=== PATIENT | male | born 2000 | race Hispanic/Latino ===

== ENCOUNTER 2020-11-28 07:19 | Day surgery (SDC) | payer OTHER ==
[2020-11-26 14:43] VITALS: BMI 22.4
[2020-11-28] MEDS ORDERED: Bupivacaine 0.25% HCL 30 ML VIAL ONE (07:47)
[2020-11-28] MEDS ORDERED: Lidocaine 1% (PF) 30 ML VIAL ONE (07:47)
[2020-11-28 08:19] LABS: Hemoglobin 16.3 g/dL (14.0-18.0); Mean Corpuscular HGB CONC 32.9 g/dL (32.0-36.0); Mean Corpuscular Hemoglobin 31.9 pg (27.0-31.0); Mean Corpuscular Volume 96.9 fL (78.0-98.0); Mean Platelet Volume 7.7 fL (7.4-10.4); Platelet Count 216 thou/uL (130-400); RBC Distribution Width 11.2 % (11.5-14.5); White Blood Cell (WBC) Count 7.1 thou/uL (4.8-10.8)
[2020-11-28] MEDS ORDERED: Fentanyl 100 MCG/2 ML VIAL ONE (08:30)
[2020-11-28] MEDS ORDERED: Famotidine/PF 20 mg/2ml Vial ONE (08:30)
[2020-11-28] MEDS ORDERED: Meperidine HCl/PF 25 MG/ML VIAL ONE (08:30)
[2020-11-28 08:37] LABS: Anion Gap 12 mmol/L (10-20); BUN (Urea Nitrogen) 19 mg/dL (8.9-20.6); Calc. Creatinine Clearance 104 mL/min (70-130); Calcium 9.6 mg/dL (7.8-10.44); Carbon Dioxide 29 mmol/L (22-29); Chloride 102 mmol/L (98-107); Glucose 100 mg/dL (70-105); Potassium 4.1 mmol/L (3.5-5.1); Sodium 139 mmol/L (136-145)
[2020-11-28 08:46] LABS: Band 2 % (5-11); Eosinophils 1 % (0-10); Lymphocytes 48 % (21-51); MDiff Complete? YES; Monocytes 2 % (0-10); Neutrophil 36 % (42-75); RBC Morphology Normal; Reactive Lymphocytes 11 % (0-10)
[2020-11-28 08:51] LABS: SARS-CoV-2 NAA Rapid Test Not Detected (NotDetected)
[2020-11-28] MEDS ORDERED: Ondansetron PF 4 MG/2 ML Vial ONE (09:31)
[2020-11-28] MEDS ORDERED: Dexamethasone 20 MG/5 ML VIAL ONE (09:31)
[2020-11-28] MEDS ORDERED: PROPOFOL 200 MG/20 ML VIAL ONE (09:31)
[2020-11-28] MEDS ORDERED: Ketorolac Tromethamine 30 MG/ML VIAL ONE (09:31)
[2020-11-28] MEDS ORDERED: Lidocaine 1% PF 5 ML VIAL ONE (09:31)
[2020-11-28] MEDS ORDERED: Metoclopramide HCl 10 MG/2 ML VIAL ONE (09:31)
--- NOTE | 2020-11-28 10:17 | OP ---
DATE OF PROCEDURE: 11/28/2020 PREOPERATIVE DIAGNOSIS: Left varicocele. POSTOPERATIVE DIAGNOSIS: Left varicocele. PROCEDURE PERFORMED: Left inguinal varicocelectomy. ANESTHESIA: General. COMPLICATIONS: None. BLOOD LOSS: Minimal. SPECIMENS: Left varicocele. DESCRIPTION OF PROCEDURE: After informed consent, the patient was taken to the operating room, transferred to the table under his own power. Anesthesia was established. A time-out was performed showing correct patient, site, and procedure. He was prepped and draped in the supine position. This case was performed using loupe magnification. An incision was performed in the left groin overlying the spermatic cord. This was carried down through Kenyatta's with electrocautery, and the spermatic cord delivered into the operative field. The enlarged/varicose veins were carefully dissected away from the remainder of the spermatic cord. Care was taken to assure that the spermatic artery or testicular artery and vas deferens were excluded. The varicose veins were then dissected proximally and distally and then tied off with 2-0 silk ties and then thick tie performed with 3-0 Vicryl. The intervening varicose tissue was removed and passed off as specimen. There was no active bleeding, and no remaining enlarged veins to be removed. The spermatic cord was delivered back into the groin. Kenyatta's was closed with Vicryl. Skin was closed with 4-0 Monocryl and dressed with Dermabond. He tolerated the procedure well. All counts were correct at the end. Job ID: [id number]
== END 2020-11-28 11:15 | disposition home or self-care (01) ==
LOC: SDC 07:19
PROVIDERS: ATTEND Urology
PROC: 0VBG0ZZ Excision of Left Spermatic Cord, Open Approach (ICD-10-PCS; principal; 2020-11-28)
DX: I86.1 Scrotal varices (principal)
CPT/HCPCS: 36415; 80048; 85025; 88304; J0690; J1100; J1885; J2001; J2175; J2405; J2704; J2765; J3010; S0020; S0028; U0002